=== PATIENT | female | born 2000 | race Two or more races ===

== ENCOUNTER 2022-07-18 10:48 | Outpatient (REF) | payer OTHER, SELFPAY ==
[2022-07-18 14:04] LABS: MANUAL DIFF FLAG NO
[2022-07-18 14:18] LABS: Basophils Absolute Auto 0.1 X10*3/uL (0.0-0.2); Basophils Percent Auto 0.5 % (0-2); Eosinophils Absolute Auto 0.2 X10*3/uL (0.0-0.4); Hematocrit 44.2 % (37.0-47.0); Hemoglobin 14.6 g/dl (12.0-16.0); Imm Gran Abs Auto 0.05 X10*3/uL (0.00-0.03); Imm Gran Pct Auto 0.5 % (0.0-0.4); Lymphocytes Absolute Auto 2.4 X10*3/uL (1.2-4.9); Mean Corpuscular Volume 84.7 fL (80.0-98.0); Mean Platelet Volume 10.6 fL (9.4-12.3); Monocytes Absolute Auto 0.6 X10*3/uL (0.1-1.2); Monocytes Percent Auto 6.7 % (2-11); Neutrophils Percent Auto 64.3 % (45-73); Platelet Count 322 X10*3/uL (160-400); Red Blood Count 5.22 X10*6/uL (4.20-5.50); Red Cell Distribution Width 13.3 % (11.0-16.0); White Blood Count 9.3 X10*3/uL (4.8-10.8)
[2022-07-18 14:48] LABS: Alanine Aminotransferase 46 U/L (0-31); Albumin Level 4.6 g/dL (3.5-5.0); Alkaline Phosphatase 80 U/L (39-117); Anion Gap 13 (12-20); Aspartate Amino Transferase 35 U/L (5-31); Bilirubin Total 1.2 mg/dL (0.0-1.0); Blood Urea Nitrogen 10 mg/dL (9-16); Calcium 9.3 mg/dL (8.4-10.2); Carbon Dioxide 24 mmol/L (22-29); Chloride 107 mmol/L (96-108); Cholesterol 208 mg/dL; Estimated Glomerular Filt Rate > 60; Glucose Fasting 87 mg/dL (60-99); HDL Cholesterol 38 mg/dL; LDL Cholesterol Calculated 140 mg/dl; Potassium 3.7 mmol/L (3.3-5.1); Sodium 140 mmol/L (135-145); Total Protein 6.9 g/dL (6.5-8.0); Triglycerides 154 mg/dL
[2022-07-18 14:49] LABS: TSH reflex Free T4 1.01 uIU/mL (0.32-4.0)
== END 2022-07-18 10:49 | disposition home or self-care (01) ==
LOC: HO.HMGCLDS 10:48
PROVIDERS: PCP Internal Medicine; Visit Provider Internal Medicine
DX: Z00.01 Encounter for general adult medical examination with abnormal findings (principal); E66.9 Obesity, unspecified; H46.9 Unspecified optic neuritis
CPT/HCPCS: 36415; 80053; 80061; 82306; 84443; 85025

== ENCOUNTER 2025-06-20 13:50 | Outpatient (AMB) | payer OTHER, SELFPAY ==
--- NOTE | 2025-06-20 13:59 | MHC.PC.OV ---
Vital Signs 06/20/25 14:01 Height 4 ft 9 in Weight 183 lb BMI 39.6 BP 108/70 Blood Pressure Location Rt brachial Position Sitting Respiration 16 Pulse 107 H Pulse Source Pulse Oximeter Temp 98.2 F Temp Source Oral Pulse Oximetry (%) 99 Oxygen Delivery Method Room Air Intake Visit Reasons: re-est care/PE Intake Note: Pt is here today to re-est care/PE [facility] Required: No Is last menstrual period known: Yes Last menstrual period: 06/19/25 Allergies No Known Allergies Allergy (Verified 06/20/25 14:21) Medication List - Last Reconciled 06/20/25 by Purvi Zuniga MD acetaminophen (Tylenol Extra Strength) 500 mg PO Q6H PRN amitriptyline 100 mg PO BEDTIME amoxicillin-pot clavulanate 500-125 mg 1 tab PO BID cholecalciferol (vitamin D3) 50 mcg PO DAILY erenumab-aooe (Aimovig Autoinjector) 140 mg subcut QMONTH magnesium oxide 400 mg PO DAILY onabotulinumtoxinA (Botox) subcut riboflavin (vitamin B2) 400 mg PO DAILY topiramate 100 mg PO BID vitamin B complex 1 tab PO DAILY Tobacco use date assessed: 06/20/25 Dental Screening Dental Screen Date: 06/20/25 Did you have a dental visit in the last 12 months?: Yes Did you have a dental problem in the last 6 months where you did not have access to dental care?: No Was dental information given to patient?: Patient has dentist [facility] Medical History (Updated 06/20/25 @ 14:46 by Purvi Zuniga MD) Submammary intertrigo Dorsalgia of cervical region Chronic migraine w/o aura w/o status migrainosus, not intractable Myelin oligodendrocyte glycoprotein antibody disorder (MOGAD) Optic neuritis, right Surgical History (Updated 07/18/22 @ 10:25 by Purvi Zuniga MD) No pertinent past surgical history Family History (Updated 06/20/25 @ 14:31 by Purvi Zuniga MD) Father Essential hypertension Maternal Grandmother Diabetes mellitus Social History Housing: Apartment Patient Tobacco Use Status: Never used Tobacco e-Cigarette/Vaping Use: Never Used service: No Current occupational status: employed Cognitive needs: No Vision needs: Yes Female Reproductive History Menstrual Age of Menarche: 8 Date of last menstrual period: 06/19/25 control method: none Questionnaire PHQ-9 Over the last 2 weeks, how often have you been bothered by any of the following problems? 1. Little interest or pleasure in doing things: not at all 2. Feeling down, depressed, or hopeless: not at all 3. Trouble falling or staying asleep, or sleeping too much: not at all 4. Feeling tired or having little energy: several days 5. Poor appetite or overeating: several days 6. Feeling bad about yourself - or that you are a failure or have let yourself or your family down: not at all 7. Trouble concentrating on things, such as reading the newspaper or watching television: not at all 8. Moving or speaking so slowly that other people could have noticed. Or the opposite - being so fidgety or restless that you have been moving around a lot more than usual: not at all 9. Thoughts that you would be better off or of hurting yourself in some way: not at all Total score: 2 Depression Screening Interpretation: Negative Depression Screening Done: Yes 40427 - PHQ-9 Billing: Yes Source: Developed by Drs. Santos Michaels, Azalea Lucero, Ovidio Davenport and colleagues, with an educational keenan from [employer]. Thrive Questionnaire Date Thrive assessed: 06/20/25 I am a: Patient What is your living situation today?: I have a steady place to live Within the past 12 months, did the food you bought not last and you didn't have the money to get more?: Often true Within the past 12 months, did you worry whether your food would run out before you got money to buy more?: Never true Do you have trouble paying for medicines?: No Do you have trouble getting transportation to medical appointments?: No Do you have trouble paying your heating and electricity bill?: No Do you have trouble taking care of your child, family member or friend?: No Do you have trouble with day-to-day activities such as bathing, preparing meals, shopping, managing finances, etc.?: No Are you currently unemployed and looking for a job?: No Are you interested in more education?: No Please select the resources that you would like help with: None Currently or been in a relationship where the following occur: No concerns reported THRIVE Score: 1 AUDIT C Alcohol Use Questionnaire (AUDIT-C) 1. How often do you have a drink containing alcohol?: Never Total Score: 0 Score Reviewed/Action Taken: Yes TRUNG-7 AMB Questionnaire TRUNG-7 Date TRUNG - 7 assessed: 06/20/25 Feeling nervous, anxious, or on edge: 0 = Not at all Not being able to stop or control worryin = Not at all Worrying too much about different things: 0 = Not at all Trouble relaxin = Not at all Being so restless that it is hard to sit still: 0 = Not at all Becoming easily annoyed or irritable: 0 = Not at all Feeling afraid as if something awful might happen: 0 = Not at all Total TRUNG-7 score (0-4 normal; 5-9 mild; 10-14 moderate; 15-21 severe): 0 Source: Developed by Drs. Santos Michaels, Azalea Lucero, Ovidio Davenport and colleagues, with an educational keenan from [employer]. Physical exam (Primary Care) Vital Signs: Last Vital Signs Temp 98.2 F 06/20/25 14:01 Pulse 107 H 06/20/25 14:01 Resp 16 06/20/25 14:01 BP 108/70 06/20/25 14:01 Pulse Ox 99 06/20/25 14:01 Oxygen Delivery Method Room Air 06/20/25 14:01 BMI result Body Mass Index 39.6 Tobacco/Smoking Status: Tobacco use Status Tobacco use date assessed 06/20/25 06/20/25 14:10 Patient Tobacco Use Status Never used Tobacco 06/20/25 14:10 e-Cigarette/Vaping Use Never Used 06/20/25 14:10 PHQ-9: PHQ-9 Score PHQ-9: Total score 2 06/20/25 14:32 Depression Screening Interpretation: Negative Thrive Assessment: Date of Thrive Assessment Date Thrive assessed 06/20/25 06/20/25 14:10 Currently or been in a relationship where the following occur: No concerns reported Office Procedures Flu Questionnaire Does the patient have a severe egg allergy?: No Does the patient have severe life threatening allergies?: No Does the patient have a fever or illness today?: No Has the patient ever had Guillain-[place] Syndrome?: No Has the patient ever had any past reaction to a flu shot?: No Immunizations Fluarix [id number] (PF) 45 mcg (15 mcg x 3)/0.5 mL IM syringe Performing Provider: Purvi Zuniga MD Performing Location: [facility] Administered by: Mayda Maguire CMA on 06/20/25 15:03 Dose Route Admin Location Dispensed Lot Number Expiration Date NDC Rod Finisher 0.5 mL IM Right Deltoid 0.5 mL [id number] 01/03/26 [id number] Nephros VIS Given Date VIS Provided VIS Publication Date 06/20/25 Single Vaccine 24 Eligibility Eligibility Date Funding Source Not [facility] Eligible 06/20/25 Private Coding Level of Care Code Est Pt Prev Care 18-39y(48096) Diagnoses Optic neuritis, right H46.9 Myelin oligodendrocyte glycoprotein antibody disorder (MOGAD) G37.8 Chronic migraine w/o aura w/o status migrainosus, not intractable G43.709 Annual visit for general adult medical examination with abnormal findings Z00.01 Dorsalgia of cervical region M54.2 Submammary intertrigo L30.4 Encounter for screening for malignant neoplasm of cervix Z12.4 Additional Codes PHQ-9 - 54954 - PHQ-9 Billing: Yes ([id number]) Assessment & Plan Assessment & Plan (1) Optic neuritis, right: Comment: dx 8due to MOG antibody s/p plasma exchange , now on amitriptyline for headaches, sully at [facility] Dr Pravin Matamoros Code(s): H46.9 - Unspecified optic neuritis Category: Medical (2) Myelin oligodendrocyte glycoprotein antibody disorder (MOGAD): Comment: dx 02/26/[address] Primitivo bonds at [facility] neurology , currently testing negative , stopped IVIG treatment Code(s): G37.8 - Other specified demyelinating diseases of central nervous system Category: Medical (3) Chronic migraine w/o aura w/o status migrainosus, not intractable: Code(s): G43.709 - Chronic migraine without aura, not intractable, without status migrainosus Category: Medical (4) Annual visit for general adult medical examination with abnormal findings: Code(s): Z00.01 - Encounter for general adult medical examination with abnormal findings (5) Dorsalgia of cervical region: Code(s): M54.2 - Cervicalgia Category: Medical (6) Submammary intertrigo: Code(s): L30.4 - Erythema intertrigo Category: Medical (7) Encounter for screening for malignant neoplasm of cervix: Code(s): Z12.4 - Encounter for screening for malignant neoplasm of cervix Orders: Orders Complete Blood Count Auto Diff Today G37.8 - Other specified demyelinating diseases of central nervous system, G43.709 - Chronic migraine without aura, not intractable, without status migrainosus, H46.9 - Unspecified optic neuritis, Z00.01 - Encounter for general adult medical examination with abnormal findings Alanine Aminotransferase Today G37.8 - Other specified demyelinating diseases of central nervous system, G43.709 - Chronic migraine without aura, not intractable, without status migrainosus, H46.9 - Unspecified optic neuritis, Z00.01 - Encounter for general adult medical examination with abnormal findings Lipid Panel Today G37.8 - Other specified demyelinating diseases of central nervous system, G43.709 - Chronic migraine without aura, not intractable, without status migrainosus, H46.9 - Unspecified optic neuritis, Z00.01 - Encounter for general adult medical examination with abnormal findings Vitamin D 25-OH Total Today G37.8 - Other specified demyelinating diseases of central nervous system, G43.709 - Chronic migraine without aura, not intractable, without status migrainosus, H46.9 - Unspecified optic neuritis, Z00.01 - Encounter for general adult medical examination with abnormal findings Influenza [id number] Immunization Today Z23 - Encounter for immunization Basic Metabolic Panel Fasting Today G37.8 - Other specified demyelinating diseases of central nervous system, G43.709 - Chronic migraine without aura, not intractable, without status migrainosus, H46.9 - Unspecified optic neuritis, Z00.01 - Encounter for general adult medical examination with abnormal findings Aspartate Amino Transferase Today G37.8 - Other specified demyelinating diseases of central nervous system, G43.709 - Chronic migraine without aura, not intractable, without status migrainosus, H46.9 - Unspecified optic neuritis, Z00.01 - Encounter for general adult medical examination with abnormal findings Referrals Breast Surgery Referral L30.4 - Erythema intertrigo, M54.2 - Cervicalgia CUSTOMER CARE ASSISTANT Referral Z12.4 - Encounter for screening for malignant neoplasm of cervix
[2025-06-20 14:01] VITALS: BP 108/70; PULSE 107; RESP 16; TEMP 36.8; O2SAT 99; BMI 39.6
--- OUTSIDE RECORDS SUMMARY | 2025-06-20 20:03 | XMS_ITS | Clinical Summary ---
Author Organization [address] Address [address] [place] [address] Phone Care Team Providers Care Inkjet Operator Name Role Phone KenyMarilia foster Primary Care Provider [phone] Social History Tobacco Use Types Packs/Day Years Used Date Smoking Tobacco: Never Assessed Comments Unknown Sex and Gender Information Value Date Recorded Sex Assigned at Not on file Legal Sex Female 3:58 AM EST Gender Identity Not on file Sexual Orientation Not on file Plan of Treatment Health Maintenance Due Date Last Done Comments HPV Vaccines (1 - 3-dose series) 2014 DTaP,Tdap,and Td Vaccines (1 - Tdap) 2018 Hepatitis B Vaccines (1 of 3 - 19+ 3-dose series) 2018 Cervical Cancer Screening: P ap Smear 2020 Depression Screening 07/07/2024 HIV Screening 08/09/2024 Hepatitis C Screening 08/09/2024 Social Influencers of Health Screening 08/09/2024 COVID-19 Vaccine ( - 2024-2 6 season) 2025 Influenza Vaccine (#1) 2025 RSV Immunization Adult Patie nts (1 - 1-dose 75+ series) 2074 HIB Vaccines Aged Out No longer eligi ble based on patient's age to complete this topic Hepatitis A Vaccines Aged Out No long er eligible based on patient's age to complete this topic IPV Vaccines Aged Out No longer eligi ble based on patient's age to complete this topic MMR Vaccines Aged Out No longer eligi ble based on patient's age to complete this topic Meningococcal ACWY Vaccine Aged Out N o longer eligible based on patient's age to complete this topic Meningococcal B Vaccine Aged Out No l onger eligible based on patient's age to complete this topic Pneumococcal Vaccine: Pediat rics (0 to 5 Years) and At-Risk Patients (6 to 49 Years) Aged Out No longer eligible b ased on patient's age to complete this topic RSV Immunization Patients Un thierry 20 months Aged Out No longer eligible b ased on patient's age to complete this topic Varicella Vaccines Aged Out No longer eligible based on patient's age to complete this topic Insurance MEDICAID - [place] [facility] Care Teams Inkjet Operator Relationship Specialty Start Date End Date Marilia Liao DO [address] [place] [address] PCP - General Internal Medicine 08/09/24
--- OUTSIDE RECORDS SUMMARY | 2025-06-20 20:03 | XMS_ITS | Encounter Summary ---
Author Organization [facility] Address [address] [place] [id number] Phone Care Team Providers Care Major Gifts Officer Name Role Phone Radha Wilkinson MD Primary Care Provider Emily Alex MD Primary Care Provide r Purvi Zuniga MD Primary Care Provider Encounter Details Date Type Department Care Team (Late st Contact Info) Description 12/25/2021 Procedure Pass [facility] - MRI, [address] [address] Social History Tobacco Use Types Packs/Day Years Used Date Smoking Tobacco: Never Smokeless Tobacco: Never Comments Unknown Sex and Gender Information Value Date Recorded Sex Assigned at Female 12/20/2021 12:31 PM EDT Legal Sex Female 11:52 AM EDT Gender Identity Female 12/20/2021 12:31 PM EDT Sexual Orientation Straight 12/20/2021 12 :31 PM EDT documented as of this encounter Last Filed Vital Signs Vital Sign Reading Time Taken Comments Blood Pressure - - Pulse - - Temperature - - Respiratory Rate - - Oxygen Saturation - - Inhaled Oxygen Concentration - - Weight 68 kg (150 lb) 12/25/2021 12:20 PM EDT Height 144.8 cm (4' 9 ) 12/25/2021 12:20 PM EDT Body Mass Index 32.46 12/25/2021 12:20 PM EDT documented in this encounter Functional Status * Calculated C-SSRS Risk Score (Lifetime/Recent) Answer Date of Assessment Author No Risk Indicated 12/28/2021 12:00 PM EDT Cate Becker RN * [place] Suicide Severity Rating Scale (Screener/Recent Self-Report) Question Answer Date of Assessment Author 1. Wish to be (Past 1 Month) No 022 12:00 PM EDT Cate Becker RN 2. Non-Specific Active Suici janice Thoughts (Past 1 Month) No 12/28/2021 12:00 PM EDT Cate Becker RN 6. Suicidal Behavior (Lifetime) No 12:00 PM EDT Cate Becker RN documented as of this encounter Plan of Treatment Not on file documented as of this encounter Visit Diagnoses Not on filedocumented in this encounter Care Teams Major Gifts Officer Relationship Specialty Start Date End Date Radha Wilkinson MD [address] [place] [address] [address] [address] [place] [address] PCP - General Pediatrics 12/18/21 05/27/24 Emily Alex MD [address] [place] [address] [place] [address] PCP - General Family Medicine 05/28/24 12/28/24 Purvi Zuniga MD [address] [place] [address] [place] [address] PCP - General Internal Medicine 12/29/24 documented as of this encounter Additional Source Comments The information contained in this document represents components of the legal health record. It is not the complete legal health record.[facility]
--- OUTSIDE RECORDS SUMMARY | 2025-06-20 20:03 | XMS_ITS | Encounter Summary ---
Author Organization [facility] Address [address] [place] [address] Phone Care Team Providers Care Peeled Potato Inspector Name Role Phone Radha Wilkinson MD Primary Care Provider Emily Alex MD Primary Care Provide r Purvi Zuniga MD Primary Care Provider Encounter Details Date Type Department Care Team (Late st Contact Info) Description 12/25/2021 Procedure Pass [facility] - MRI, [address] [address] Social History Tobacco Use Types Packs/Day Years [...] - Weight 68 kg (150 lb) 12/25/2021 12:21 PM EDT Height 144.8 cm (4' 9 ) 12/25/2021 12:21 PM EDT Body Mass Index 32.46 12/25/2021 12:21 PM EDT documented in this encounter Functional Status * Calculated C-SSRS Risk Score (Lifetime/Recent) Answer Date of Assessment Author No Risk Indicated 12/28/2021 12:00 PM EDT Cate Becker RN * [place] Suicide Severity Rating Scale (Screener/Recent Self-Report) Question [...] on filedocumented in this encounter Care Teams Peeled Potato Inspector Relationship Specialty Start Date End Date Radha Wilkinson MD [address] [place] [address] [place] [address] [place] [address] PCP - General Pediatrics 12/18/21 05/27/24 Emily Alex MD [address] [place] [address] [place] [address] PCP - General Family Medicine 05/28/24 12/28/24 Purvi Zuniga MD [address] [place] [address] [place] [address] PCP - General Internal Medicine 12/29/24 documented as of this encounter Additional Source Comments The information contained in this document represents components of the legal health record. It is not the complete legal health record.[facility]
--- OUTSIDE RECORDS SUMMARY | 2025-06-20 20:03 | XMS_ITS | Clinical Summary ---
Author Organization [facility] Address [address] [facility] [address] [place] [address] Phone Care Team Providers Care Grocery Shopper Name Role Phone Purvi Zuniga MD Primary Care Provider Allergies No known active allergies Medications calcium citrate-vitamin D3 315 mg-6.25 mcg (250 unit) per tablet Take 1 tablet by mouth daily. 30 tablet 01/11/20 22 Active topiramate (TOPAMAX) 100 MG tablet Take 100 mg by mouth 2 (two) times a day. Active b complex vitamins (B COMPLEX-VITAMIN B12) tablet Take 1 tablet by mouth daily. 90 tablet 3 09/18/19 25 Active cholecalciferol (VITAMIN D3) 2,000 unit capsule Take 1 capsule (2,000 Units total) by mouth daily. 90 capsule 3 09/18/19 25 Active magnesium oxide (MAG-OX) 400 mg (241.3 mg elemental) tablet Take 1 tablet (400 mg total) by mouth daily. 90 tablet 3 11/23/19 25 2025 Active topiramate (TOPAMAX) 100 MG tablet Take 1 tablet (100 mg total) by mouth 2 (two) times a day. 60 tablet 11 12/30/19 25 2025 Active naratriptan (AMERGE) 2.5 MG tablet Take 2.5 mg by mouth as needed for migraine. 12/18/19 25 2025 Active amitriptyline (ELAVIL) 25 MG tabletIndications: Intractable chronic migraine without aura and without status migrainosus Take 4 tablets (100 mg total) by mouth nightly at bedtime. 360 tablet 3 03/16/202025 Active riboflavin, vitamin B2, (,VITAMIN B-2,) 100 mg TabIndications:Mye juan a oligodendrocyte glycoprotein antibody disorder (MOGAD) TAKE 4 TABLETS BY MOUTH DAILY. 360 tablet 04/04/20 Active erenumab-aooe (AIMOVIG) 140 mg/mL subcutaneous injectionIndicatio ns:Intractable chronic migraine without aura and without status migrainosus Inject 1 mL (140 mg total) under the skin every 28 days. 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 Previously followed with Dr. Matamoros at [facility] [place] [place] (last 05/07/22) Recently followed at [facility] Neuroimmunology, saw Dr. Kyra Orr 06/04/24. Newly established with Dr. Benitez in headache clinic. On topiramate, amitriptyline Considering botox. (Last aimovig/nurtec was 06/2024, then stopped being approved by her insurance) Disease course: MOGAD Initial [facility] [place] [place] admission 12/2021: #MOG-positive optic neuritis/perineuritis Patient presents w/ severe vision loss OD x 3 weeks with imaging suggestive of optic neuritis w/ long segment of enhancement also involving nerve sheath. Minimal improvement after 3 days IV MP and was referred to [facility] [place] [place] for further work up and consideration of PLEX. LP notable for 6->8 nucleated cells (58% lymphs), glucose 98, total protein 19. Work up notable for serum +MOG antibody with titer of 1:1000. PLEX initiated 12/31 for total of 5 sessions QOD (to end 01/09) and was continued on 40 mg prednisone with plan for prolonged taper. Headache was treated with migraine cocktail. Over the course of her hospitalization, visual acuity and color saturation improved. Visual acuity improved to 20/40 -1 OD, 20/20 OS on discharge exam. PLEX line removed in sterile fashion without complication on 01/09 prior to discharge. After discharge, she had sustained improvement in her vision at ~20/40. She had intermittent headaches at that time, but improved with excedrin and other abortive meds. These didn't clearly involve eye pain. She was able to go back to work. She started Rituximab initially 04/30/22 and 05/15/22, most recently 10/29/2022. She moved to [place] and transitioned care to [facility]. Has been receiving brain MRIs q6 months without evidence of recurrent optic neuritis or other lesions. In April, she had a suspected relapse (no MRI completed at the time of the event). She was at work and noticed that whenever she moved her eyes there was pain in the right eye. This felt similar to her initial event. Her vision did not clearly change this time. She went to [facility] and was on IV steroids for 5 days in the hospital. Her eye pain improved. This was around the time when she was next due for a Rituximab infusion, but she missed it because of this hospitalization. Her team back at [facility] checked her CD19/CD20 and these remained suppressed as of 05/07/23. She thinks she was on an oral pred taper for a while after this event. This was considered a Rituximab failure and she was switched to IVIG 2g/kg/month as of 06/2023. Since the possible relapse in April,, she has been unable to work because of severe headaches. She thinks they worsened soon after the episode, prior to starting IVIG, but is not positive. She also gets frequent dizziness/lightheadedness now and is more prone to car sickness. She has been receiving IVIG monthly through [facility] through a port. As of her dose 07/06/2024, an attempted reduction down to 1g/kg (60g) was made to see if there was benefit for her headaches, however after she received this dose, she moved back [place], and has not been able to restart her infusions. Since her move [place], attempt was made to re-initiate IVIG through neurology at [facility] (has not yet seen them in person, and she is unsure of the provider's name). She went in to receive this 09/04/24, but the infusion had to be stopped early on due to clogging of her port. There was pain and an odd cold sensation when they flushed it. With starting the infusion, she had dizziness and chest pain. She went to the [facility] ED (showed me notes on her phone). 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 The thrombus was adjacent to the catheter. She was started on heparin gtt and discharged on eliquis and oxycodone, with plan for repeat US in 2 weeks (due tomorrow). Will see cardiovascular surgery. She was told she can likely keep the port if the clot has resolved. Her main ongoing symptom is daily migraines since 04/2023. They seem to be getting worse in recent months (since stopping IVIG) since 06/2024. She also stopped aimovig at the same time (insurance reasons) - this did not seem to help at 70mg dose, but she just received a 140mg dose in 06/2024 with reduction in pain to 6/10. Also continues on topamax 100mg BID and amitriptyline 50mg. Since the pain radiates up from her occipital around to the temporal regions, occipital nerve blocks were attempted in the past, but not helpful. Also has upper back pain. She gets some weakness in her legs with activity, naproxen helps. This is similar since the onset of her illness. Gets tingling/numbness in the face and fingers, which she suspects is related to topomax. No bowel/bladder symptoms. She is due to see an self contained behavior unit teacher local to her in a few months and will fax the notes to us. States she does wear glasses which are helpful for both eyes, and forgot them today. DISEASE SUMMARY - Date of symptomatic onset: December 2021 with long-segment optic neuritis OD - Date of diagnosis of MOGAD: December 2021 - Disease course at onset: optic neuritis/perineuritis - Current disease course: - possible relapse 04/2023: eye pain OD with movements of eyes. No vision change. Presented to [facility]. She did not get a repeat MRI at that time (prior in 02/2023 and after 09/2023 were stable). Treated empirically with IVMP x5 days, then a pred taper. - Previous disease therapies and discontinuation reasons: RTX 04/2022 - 10/2022 (possible relapse 04/2023 while CD19/20 were suppressed c/f failure) - Most recent MRI brain: 06/12/2024, normal - Most recent MRI cervical spine: 02/11/2023, normal - Most recent MRI thoracic spine: 10/13/2023, normal (L spine also normal at this time) - CSF: unremarkable, repeated 09/2023 with OP 24 cm H2O - High dose Steroid exposure courses: twice - MOG titers/dates: serum 1:1000 12/2021 at time of diagnosis --> negative 09/2023 - AQP4 titers/dates: neg Interval history, November 22, 2024: Continues to have daily headaches of 7 on a scale of 10, but eye pain resolved with steroid eye drops. Her vision is about the same with blurriness (R > L) causing dizziness. She can barely see out of the right eye (maybe 20/400) but she has moderately good vision in the left eye. She is asking about being able to drive. She was previously restricted from driving from excessive headaches, which have not meaningfully improved except that she does not get the horrible headaches after IVIG. She previously used Aimovig, and she would like to try it again. She is currently on topiramate and amitriptyline. Interval history, May 30, 2025: Amitriptyline 100 mg nightly, Topamax 100 mg twice daily and botox and these are not helping with the headache. She also got injections for occipital neuralgia and they helped only a little - back in July. Touching the occipital neuralgia causes symptoms to spread to the front of the head and stops on top of the face. In addition, she also has pain with eye movements in any direction, which fluctuates - it comes and goes throughout the day. MRI and CSF have been negative. Assessment & Plan (05/30/2025 11:13 AM EST): Linh Sarabia is a 25 y.o. 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 She had been previous treated with IVIG 2g/kg/month starting 06/2023 and completed 1 year of therapy. We discussed that MOGAD can occur as either a monophasic or relapsing illness. In her case, whether a relapse occurred or not is somewhat of a question since no imaging was repeated at the time of the eye pain recurrence in 04/2023, however the clear improvement with steroids does point towards possible relation to antibody disease. Nonetheless, she has completed over a year of IVIG therapy since that time, which is known to be more effective than Rituximab in MOGAD, without recurrence and is currently stable off of therapy for the past 2.5 months (and with a reduced 1g/kg dose as her most recent infusion 07/06/24). There could be an argument made for remaining off of immune therapy at this time and monitoring clinically. We discussed that if her MOG ab remains negative, she has approximately a <15% chance of relapse. We will re-check MOG antibodies this fall and then space out future visits as needed. Additional Plans: Obtain MRI images from [facility] to make sure there is no evidence of MOG disease or optic neuritis. Communicate with headache clinic about alternative migraine treatment options. Assessment & Plan (11/22/2024 9:45 AM EDT): Linh Sarabia is a 24 y.o. R-handed female who presents for transfer of care for MOGAD with onset in 12/2021 with right longitudinal optic neuritis, headaches and initial antibody titer 1:1000. She has had one possible relapse involving right eye pain with movement in 04/2023 (no vision change), which was considered a likely rituximab failure and led to transition to IVIG 2g/kg/month starting 06/2023. She has had worsening severe daily headaches since this relapse. In the setting of her [place] back [place] and recent discovery of R brachiocephalic non-occlusive thrombus adjacent to her port 09/04/24 (now on apixaban), she has not received IVIG since 07/06/2024. She is clinically stable with most recent MRI brain 06/2024. We discussed that MOGAD can occur as either a monophasic or relapsing illness. In her case, whether a relapse occurred or not is somewhat of a question since no imaging was repeated at the time of the eye pain recurrence in 04/2023, however the clear improvement with steroids does point towards possible relation to antibody disease. Nonetheless, she has completed over a year of IVIG therapy since that time, which is known to be more effective than Rituximab in MOGAD, without recurrence and is currently stable off of therapy for the past 2.5 months (and with a reduced 1g/kg dose as her most recent infusion 07/06/24). There could be an argument made for remaining off of immune therapy at this time and monitoring clinically. We discussed that if her MOG ab remains negative, she has approximately a <15% chance of relapse. We will re-check MOG antibodies this fall and then space out future visits as needed. Neuromyelitis optica 12/27/2021 Optic neuritis 12/25/2021 Encounters Date Type Department Care Team Description 06/15/2025 Telephone [facility], Department of Neurology [address] [place] [address] Simone Jha MD Medication Prior Authorization (Aimovig 140MG/ML auto-injectors) 05/30/2025 11:00 AM EST Telemedicine Division of Immunologic, Inflammatory, and Infectious Neurological Disorders [address] [place] [address], 7th Floor, [address] [place] [address] Primitivo Bob MD, PhD Myelin oligodendrocyte glycoprotein antibody disorder (MOGAD) (Primary Dx) 05/25/2025 Telephone Division of Immunologic, Inflammatory, and Infectious Neurological Disorders [address] [place] [address], 7th Floor, [address] [place] [address] Xochilt Becker 05/11/2025 10:00 AM EST Telemedicine [facility] Neurology at [address] [place] [address] Simone Jha MD Intractable chronic migraine without aura and without status migrainosus (Primary Dx) 04/19/2025 Telephone [facility] [place] [place] Department of Neurology [address] [place] [address], 8th Floor, [address] [place] [address] Moe Benitez MD 04/04/2025 Refill Division of Immunologic, Inflammatory, and Infectious Neurological Disorders [address] [facility], 7th Floor, [address] [place] [address] Primitivo Bob MD, PhD Med Change Request from Last 3 Months Family History Medical History Relation Comments Cataracts Maternal Grandfather Blindness Unspecified Glaucoma Unspecified Relation Status Comments Maternal Grandfather Unspecified Social History Tobacco Use Types Packs/Day Years Used Date Smoking Tobacco: Never Smokeless Tobacco: Never Tobacco Cessation:Counseling Given: Not Answered Education Answer Date Recorded Are you interested in more education? Not on zoey e 11/01/2022 Are you concerned about learning? Not on file 11/01/2022 No 11/01/2022 No 11/01/2022 Digital Access Answer Date Recorded No 12/03/2022 No 12/03/2022 Reliable internet access at home? Not on file 12/03/2022 Device with a working camera? Not on file Comments Unknown Sex and Gender Information Value Date Recorded Sex Assigned at Female 12/20/2021 12:31 PM EDT Legal Sex Female 11:52 AM EDT Gender Identity Female 12/20/2021 12:31 PM EDT Sexual Orientation Straight 12/20/2021 12 :31 PM EDT Last Filed Vital Signs Vital Sign Reading Time Taken Comments Blood Pressure 103/75 09/16/2024 8:44 AM EDT Pulse 94 09/16/2024 8:44 AM EDT Temperature 36.6 C (97.8 F) 01/25/2025 2:02 PM EDT Respiratory Rate 20 10/29/2022 12:12 PM EDT Oxygen Saturation 99% 09/16/2024 8:44 AM EDT Inhaled Oxygen Concentration - - Weight 84.6 kg (186 lb 6.4 oz) 09/16/2024 8:44 A M EDT Height 147 cm (4' 9.87 ) 09/16/2024 8:44 AM EDT Body Mass Index 39.13 09/16/2024 8:44 AM EDT Plan of Treatment Health Maintenance Due Date Last Done Comments DEPRESSION SCREENING 2011 HPV VACCINES (1 - 3-dose series) 2014 HIV ONE-TIME SCREENING (18-6 5 YEARS) 2017 PAP SMEAR 2020 INFLUENZA VACCINE (#1) 2025 COVID-19 VACCINE (1 - 2024-2 6 season) 2025 Adult Td,Tdap Booster 10/30/2033 10/31/2023 , 06/06/2010 HEPATITIS C SCREENING Completed 12/28/2021 , 12/28/2021 SMOKING STATUS SCREENING (On ce After 26 Yrs) Completed 05/30/2025 HEPATITIS A VACCINES Aged Out No long er eligible based on patient's age to complete this topic HIB VACCINES Aged Out No longer eligi ble based on patient's age to complete this topic MENINGOCOCCAL VACCINES (ACWY) Aged Out No longer eligible based on patient's age to complete this topic MENINGOCOCCAL VACCINES (B) Aged Out N o longer eligible based on patient's age to complete this topic PNEUMOCOCCAL VACCINES (0-49 years) Aged Out No longer eligible b ased on patient's age to complete this topic Medical Devices Not on file Procedures Procedure Name Priority Date/Time Associated Diagnosis Comments HEPATITIS B CORE ANTIBODY, TOTAL Routine 12/28/2021 10:00 AM EDT from Last 3 Months or Most Recently Relevant to Health Maintenance Results * Hepatitis B core antibody, total (12/28/2021 10:00 AM EDT) HEP B CORE AB, TOT Negative Negative [facility] Comment:A nonreactive final interpretation indicates that anti-HBc antibodies were not detected in the sample. It is possible that the individual is not infected with HBV. Blood 12/28/2021 10:0 0 AM EDT 12/28/2021 3:34 PM EDT us Temi Colon DIRECTOR OF IN SERVICE EDUCATION LAB BLOOD BKR ORDERABLES Final R esult [facility] [address] [place] [address] from Last 3 Months or Most Recently Relevant to Health Maintenance Insurance [employer] [place] [address] [address] [place] [address] [place] [place] [address] ACO Advance Directives For more information, please contact: [phone] (9AM - 5PM [facility], Friday-Friday) * Full Code (Latest Code Status on File) Date Activated Date Inactivated Comments 12/28/2021 12:25 AM Question Answer Comments Code Status Confirmed With: Patient Care Teams Grocery Shopper Relationship Specialty Start Date End Date Purvi Zuniga MD [address] [place] [address] PCP - General Internal Medicine 12/29/24 Additional Source Comments The information contained in this document represents components of the legal health record. It is not the complete legal health record.[facility]
--- OUTSIDE RECORDS SUMMARY | 2025-06-20 20:03 | XMS_ITS | Encounter Summary ---
Author Organization [facility] Address [address] [place] [phone] Phone Care Team Providers Care Filament Tester Name Role Phone Purvi Zuniga MD Primary Care Provider Reason for Visit * Reason Onset Date Comments Medication Prior Authorization 06/15/2025 A imovig 140MG/ML auto-injectors Encounter Details Date Type Department Care Team (Late st Contact Info) Description 06/15/2025 Telephone [facility], Department of Neurology [address] [place] [address] Simone Jha MD [address] [place] [address] Department of Neurology, [place] [address] [email or web address] Medication Prior Authorization (Aimovig 140MG/ML auto-injectors) Social History Tobacco Use Types Packs/Day Years Used Date Smoking Tobacco: Never Smokeless Tobacco: Never Education Answer Date Recorded Are you interested [...] PM EDT documented as of this encounter Progress Notes * Loly Clark - 06/16/2025 2:12 PM EST Prior Authorization [facility] Documentation for Aimovig 140MG/ML auto-injectors medication Initial PA submission on 06/15/2025 date through CoverMyMeds - [place]: [id number] has a determination status from insurance of Approved. PA start date 06/15/2025, PA end date 09/13/2025, Authorization # [id number] PA process complete. Patient has been notified through Patient [facility]. Clinic staff notified. Your Care Team [facility], Department of Neurology * John Joseph - 06/15/2025 2:18 PM EST Prior Authorization [facility] Documentation for Aimovig 140MG/ML auto-injectors medication Initiated by: [facility] Neurology Headache Indication(s) for medication: Intractable chronic migraine without aura and without status migrainosus Prior Authorization request received. Prior Authorization able to be submitted today within CoverMyMeds - [place]: [id number] Patient has been notified through [facility]. Your Care Team [facility], Department of Neurology documented in this encounter Plan of Treatment Not on file documented as of this encounter Visit Diagnoses Not on filedocumented in this encounter Care Teams Filament Tester Relationship Specialty Start Date End Date Purvi Zuniga MD [facility] [place] [address] PCP - General Internal Medicine 12/29/24 documented as of this encounter Additional Source Comments The information contained in this document represents components of the legal health record. It is not the complete legal health record.[facility]
--- OUTSIDE RECORDS SUMMARY | 2025-06-20 20:03 | XMS_ITS | Encounter Summary ---
Author Organization [facility] Address [address] [place] [address] Phone Care Team Providers Care Library Services Dean Name Role Phone Radha Wilkinson MD Primary Care Provider Emily Alex MD Primary Care Provide r Purvi Zuniga MD Primary Care Provider Encounter Details Date Type Department Care Team (Late st Contact Info) Description 12/28/2021 Procedure [place] [facility] [place] [address] [place] [address] Social History Tobacco Use Types Packs/Day Years Used Date Smoking Tobacco: Never Smokeless Tobacco: Never Comments Unknown Sex and Gender Information Value Date Recorded Sex Assigned at Female 12/20/2021 12:31 PM EDT Legal Sex Female 11:52 AM EDT Gender Identity Female 12/20/2021 12:31 PM EDT Sexual Orientation Straight 12/20/2021 12 :31 PM EDT documented as of this encounter Functional Status * Calculated C-SSRS Risk Score (Lifetime/Recent) Answer Date of Assessment Author No Risk Indicated 12/28/2021 12:00 PM EDT Ctae Becker, MARY JANE * [place] Suicide Severity Rating Scale (Screener/Recent Self-Report) Question Answer Date of Assessment Author 1. Wish to be (Past 1 Month) No 06/24/2 022 12:00 PM EDT Cate Becker RN 2. Non-Specific Active Suici janice Thoughts (Past 1 Month) No 12/28/2021 12:00 PM EDT Cate Becker RN 6. Suicidal Behavior (Lifetime) No 2 12:00 PM EDT Cate Becker RN documented as of this encounter Plan of Treatment Not on file documented as of this encounter Visit Diagnoses Not on filedocumented in this encounter Care Teams Library Services Dean Relationship Specialty Start Date End Date Radha Wilkinson MD [address] [place] [address] [facility] [address] [place] [address] PCP - General Pediatrics 12/18/21 05/27/24 Emily Alex MD [address] [facility] [address] [place] [place] [address] PCP - General Family Medicine 05/28/24 12/28/24 Purvi Zuniga MD [address] [place] [address] [place] [address] PCP - General Internal Medicine 12/29/24 documented as of this encounter Additional Source Comments The information contained in this document represents components of the legal health record. It is not the complete legal health record.[facility]
--- OUTSIDE RECORDS SUMMARY | 2025-06-20 20:04 | XMS_ITS | Encounter Summary ---
Author Organization [facility] Address [address] [place] [id number] Phone Care Team Providers Care Fleet Director Name Role Phone Radha Wilkinson MD Primary Care Provider Emily Alex MD Primary Care Provide r Purvi Zuniga MD Primary Care Provider Encounter Details Date Type Department Care Team (Late st Contact Info) Description 12/28/2021 Procedure [place] [facility] [place], Main [address], Floor 1 [place] [address] Social History Tobacco Use Types Packs/Day Years [...] Risk Indicated 12/28/2021 12:00 PM EDT Cate Becker, MARY JANE * [place] Suicide Severity Rating Scale (Screener/Recent Self-Report) Question [...] on filedocumented in this encounter Care Teams Fleet Director Relationship Specialty Start Date End Date Radha Wilkinson MD [address] [place] [address] Dr Zhang [address] [id number] PCP - General Pediatrics 12/18/21 05/27/24 Emily Alex MD [address] [facility] [address] [address] PCP - General Family Medicine 05/28/24 12/28/24 Purvi Zuniga MD [address] [place] [address] [place] [address] PCP - General Internal Medicine 12/29/24 documented as of this encounter Additional Source Comments The information contained in this document represents components of the legal health record. It is not the complete legal health record.[facility]
--- OUTSIDE RECORDS SUMMARY | 2025-06-20 20:04 | XMS_ITS | Encounter Summary ---
Author Organization [facility] Address [address] [place] [address] Phone Care Team Providers Care Cigarette Seller Name Role Phone Radha Wilkinson MD Primary Care Provider Emily Alex MD Primary Care Provide r Purvi Zuniga MD Primary Care Provider Encounter Details Date Type Department Care Team (Late st Contact Info) Description 12/28/2021 [place] [facility] [place] [address] [place] [address] Social History Tobacco Use Types Packs/Day Years [...] PM EDT Cate Becker, MARY JANE * [place] Suicide Severity Rating Scale (Screener/Recent Self-Report) Question [...] on filedocumented in this encounter Care Teams Cigarette Seller Relationship Specialty Start Date End Date Radha Wilkinson MD [address] [place] [address] Dr Zhang [address] [address] PCP - General Pediatrics 12/18/21 05/27/24 Emily Alex MD [address] [facility] [address] [address] PCP - General Family Medicine 05/28/24 12/28/24 Purvi Zuniga MD [address] [place] [address] [place] [address] PCP - General Internal Medicine 12/29/24 documented as of this encounter Additional Source Comments The information contained in this document represents components of the legal health record. It is not the complete legal health record.[facility]
--- OUTSIDE RECORDS SUMMARY | 2025-06-20 20:04 | XMS_ITS | Encounter Summary ---
Author Organization [facility] Address [address] [place] [address] Phone Care Team Providers Care Traffic Inspector Name Role Phone Purvi Zuniga MD Primary Care Provider Encounter Details Date Type Department Care Team (Late st Contact Info) Description 05/25/2025 Telephone Division of Immunologic, Inflammatory, and Infectious Neurological Disorders [address] [facility], 7th Floor, [address] [place] [address] [email or web address] [facility] Social History Tobacco Use Types Packs/Day Years [...] as of this encounter Progress Notes * Xochilt Becker - 05/25/2025 9:44 AM EST Reason for call: Needs a call to discuss pt care Who is calling/best number to reach: Dr. [place]/ [phone] Where are you calling from: [facility] ER Action required: 12/07/2024 05/30/2025 documented in this encounter Plan of Treatment Not on file documented as of this encounter Visit Diagnoses Not on filedocumented in this encounter Care Teams Traffic Inspector Relationship Specialty Start Date End Date Purvi Zuniga MD [address] [place] [address] [place] [address] PCP - General Internal Medicine 12/29/24 documented as of this encounter Additional Source Comments The information contained in this document represents components of the legal health record. It is not the complete legal health record.[facility]
== END 2025-06-20 14:52 | disposition home or self-care (01) ==
LOC: HO.HMCC 13:51
PROVIDERS: PCP Internal Medicine; Visit Provider Internal Medicine
DX: Z23 Encounter for immunization (principal)

== ENCOUNTER → 2025-06-20 13:50 | Outpatient (BNVA) | payer OTHER, SELFPAY | PROVIDERS: PCP Internal Medicine; Visit Provider Internal Medicine | DX: Z23 Encounter for immunization (principal); Z00.01 Encounter for general adult medical examination with abnormal findings; Z12.4 Encounter for screening for malignant neoplasm of cervix; H46.9 Unspecified optic neuritis; G37.81 Myelin oligodendrocyte glycoprotein antibody disease; G43.709 Chronic migraine without aura, not intractable, without status migrainosus; M54.2 Cervicalgia; L30.4 Erythema intertrigo | CPT/HCPCS: 90471; 90656; 96127; 99395; 99497 ==